=== PATIENT | female | born 1990 | race Caucasian/White ===

== ENCOUNTER 2020-05-28 17:27 | Emergency (ER) | payer SELFPAY ==
--- NOTE | 2020-05-28 17:36 | ER Document Report ---
ED General - General Chief Complaint: Cough Stated Complaint: COUGH Time Seen by Provider: 05/28/20 17:34 Primary Care Provider: NICOLE MULLEN MD [ACTIVE STAFF] - Follow up as needed MONSERRAT JIMENEZ MD [ACTIVE STAFF] - Follow up as needed - HPI Notes: 29-year-old female presents emergency room for evaluation of a cough that she has experienced after having a head cold with a ST for a week that resolved itself. She states that is now moved into her chest. Patient does smoke cigarettes, denies any fevers or chills. 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 Denies any sciatica, numbness or tingling down her arms or legs. Denies any previous back injury. She states it feels worse in the morning when she first gets up. she has not tried any ibuprofen or Tylenol, she states she did try ice and heat without full relief. Patient also states that she noticed on her right lower leg a possible spider bite yesterday, she is concerned about it getting infected. Reports her last menstrual cycle was a week and a half ago. Reports her lower back pain is 3 out of 5, throbbing achy. Patient denies any positive COVID interactions or having COVID herself. patient does not want to be tested for COVID at this time. Denies fevers, chills, chest pain,palpitations, shortness of breath, dyspnea, nausea, vomiting, diarrhea, abdominal pain, hematuria,blurred vision, double vision, loss of vision, speech changes, LH, dizziness, syncope, headaches, wheezing, ST, neck pain, weakness, bowel or bladder dysfunction, saddle anesthesia, numbness or tingling in bilateral upper or lower extremities equally, muscle paralysis, weakness in bilateral upper or lower extremities equally. MEDICATIONS: I agree with the patient medications as charted by the RN. ALLERGIES: I agree with the allergies as charted by the RN. PAST MEDICAL HISTORY/PAST SURGICAL HISTORY: Reviewed and agree as charted by RN. SOCIAL HISTORY: Reviewed and agree as charted by RN. FAMILY HISTORY: No significant familial comorbid conditions directly related to patient complaint EXAM: Reviewed vital signs as charted by RN. REVIEW OF SYSTEMS:reviewed vital signs by RN CONSTITUTIONAL : Denies fever, chills, or sweats. Denies recent illness. EENT: Denies eye, ear, throat, or mouth pain or symptoms. Denies nasal or sinus congestion or discharge. Denies throat, tongue, or mouth swelling or difficulty swallowing. CARDIOVASCULAR: Denies chest pain. Denies palpitations or racing or irregular heart beat. Denies ankle edema. RESPIRATORY: reports cough, cold, or chest congestion. Denies shortness of breath, difficulty breathing, or wheezing. GASTROINTESTINAL: Denies abdominal pain or distention. Denies nausea, vomiting, or diarrhea. Denies blood in vomitus, stools, or per rectum. Denies black, tarry stools. Denies constipation. GENITOURINARY: Denies difficulty urinating, painful urination, burning, frequency, blood in urine, or discharge. FEMALE GENITOURINARY: Denies vaginal bleeding, heavy or abnormal periods, irregular periods. Denies vaginal discharge or odor. MUSCULOSKELETAL: reports back pain. Denies neck pain or stiffness. Denies joint pain or swelling. SKIN: Denies rash, lesions or sores. HEMATOLOGIC : Denies easy bruising or bleeding. LYMPHATIC: Denies swollen, enlarged glands. NEUROLOGICAL: Denies confusion or altered mental status. Denies passing out or loss of consciousness. Denies dizziness or lightheadedness. Denies headache. Denies weakness or paralysis or loss of use of either side. Denies problems with gait or speech. Denies sensory loss, numbness, or tingling. Denies seizures. PSYCHIATRIC: Denies anxiety or stress. Denies depression, suicidal ideation, or homicidal ideation. ALL OTHER SYSTEMS REVIEWED AND NEGATIVE. PHYSICAL EXAMINATION: GENERAL: Well-appearing, well-nourished and in no acute distress. HEAD: Atraumatic, normocephalic. EYES: Pupils equal round and reactive to light, extraocular movements intact, conjunctiva are normal. ENT: Nares patent, oropharynx clear without exudates. Moist mucous membranes. NECK: Normal range of motion, supple without lymphadenopathy LUNGS: Breath sounds clear to auscultation bilaterally and equal. No wheezes rales or rhonchi. HEART: Regular rate and rhythm without murmurs ABDOMEN: Soft, nontender, nondistended abdomen. No guarding, no rebound. No masses appreciated. Female : deferred Musculoskeletal: Normal range of motion, no pitting or edema. No cyanosis. Pain with flexion and extension at 30 degrees, positive straight leg test on left. Normal hip rotation. DTR +2 in BLE equally. Strength 5 out of 5 both distally and proximally to bilateral lower extremities normal motor and sensory function in BLE equally. Distal pulses + 2 BLE equally. Noted paraspinal tenderness near L2 and L3 on left. Strength 5 out of 5 in bilateral lower extremities equally. no spinal tenderness. No CVA tenderness bilaterally. Femoral pulses + 2 bilaterally and equally. No abrasions, scars, lacerations, ecchymosis of any recent trauma. normal gait. NEUROLOGICAL: Cranial nerves grossly intact. Normal speech, normal gait. Normal sensory, motor exams PSYCH: Normal mood, normal affect. SKIN: Warm, Dry, normal turgor, no rashes or lesions noted. Right lower lateral aspect of leg with approximately 2 cm x 2 cm area of erythema induration warmth to touch, no surrounding erythema. Distal pulses +2 bilaterally equally Dictation was performed using [email or web address] voice recognition software - Related Data Allergies/Adverse Reactions: No Known Allergies Allergy (Unverified 05/28/20 17:48) Past Medical History - General Information source: Patient - Social History Smoking Status: Current Every Day Smoker Family History: Reviewed & Not Pertinent Physical Exam - Vital signs Vitals: Temp Pulse Resp BP Pulse Ox 98.3 F 94 18 146/91 H 99 05/28/20 17:35 05/28/20 17:35 05/28/20 17:35 05/28/20 17:35 05/28/20 17:35 Course - Re-evaluation Re-evalutation: 05/28/20 19:48 AFebrile vital stable no distress. Nurses notes reviewed. Patient given 60 mg of Toradol IM. X-ray of lumbar spine and chest x-ray unremarkable. Discussed with patient that we will give her muscle relaxer and anti-inflammatory to take home, advised apply heat 20 minutes on 20 minutes off to her lower back and to her skin infection. With patient's right lower leg cellulitis, Patient is unsure she has a history of MRSA, will treat her with doxycycline twice a day for 10 days. Patient was not interested in having a COVID test when I spoke to her. She states she is not had any covert exposure. She states she typicall has URI like symptoms seasonally when the weather changes. Patient states she does not want any testing for COVID is to follow-up with senior label specialist and primary care provider if symptoms become worse for her back pain. After performing a Medical Screening Examination, I estimate there is LOW risk for EXPANDING OR RUPTURED ABDOMINAL AORTIC ANEURYSM, CAUDA EQUINA SYNDROME, EPIDURAL MASS ABSCESS OR LESION(S), OSTEOMYELITIS,PERSONAL HISTORY OF CANCER, IMMUNOSUPPERSSSION, HISTORY OF IV DRUG USE, FRACTURE, CORD COMPERSSION, CANCER, RETROPERITONEAL BLEED, SPINAL EPIDURAL HEMATOMA, or HERNIATED DISK CAUSING SEVERE SPINAL STENOSIS, thus I consider the discharge disposition reasonable. I have reevaluated this patient multiple times and no significant life threatening changes are noted. The patient and I have discussed the diagnosis and risks, and we agree with discharging home and close follow-up. We also discussed returning to the Emergency Department immediately if new or worsening symptoms occur with the understanding that symptoms and presentations can change. We have discussed the symptoms which are most concerning (e.g., saddle anesthesia, urinary or bowel incontinence or retention, changing or worsening pain) that necessitate immediate return. - Vital Signs Vital signs: Temp Pulse Resp BP Pulse Ox 98.4 F 69 18 123/72 98 05/28/20 21:53 05/28/20 21:34 05/28/20 21:34 05/28/20 21:34 05/28/20 21:34 Discharge - Discharge Clinical Impression: Cellulitis, Cough, Lower back pain Condition: Stable Disposition: HOME, SELF-CARE Instructions: Cellulitis ([facility]), Low Back Pain ([facility]), Upper Respiratory Illness ([facility]) Additional Instructions: X-ray of your chest and of your back was normal. You likely have a viral cold that started in your head and is now down to your chest. Please take warm showers, [id number] cough suppressants. If your symptoms become worse please do follow-up with your primary care provider remember regarding pandemic so please wear your mask, wash your hands and social distance when around other individuals. Please take antibiotic as directed with food for your skin infection. Do not drive, drink or operate heavy machinery while taking medication as can cause sedation impairment of cognitive function with muscle relaxers. Apply heat 20 minutes on 20 minutes off several times a day. Follow-up with primary care or senior label specialist if you are still having back pain after taking treatments. LOW BACK PAIN: Three out of every four people will have an episode of disabling back pain during their lifetime. Most commonly the pain is due to straining of the muscles and ligaments in the low back. Usual treatment includes: (1) Rest on a firm surface. Avoid lying on your stomach. (2) Ice pack the painful area. After a few days, gentle heat may be used intermittently to relax the area, or ice packs can be continued. (3) Medication may be needed -- muscle relaxers and antiinflammatory medicines are commonly used. (4) As the back improves, exercises are prescribed to strengthen the back and abdominal muscles. Your doctor will advise you on the proper care for your back at each stage in your recovery. You may be better in a few days -- or healing may take several weeks. If new symptoms of a "herniated disc" (radiation of pain, numbness, or tingling down the back of the leg or weakness in the leg) occur, you should be re-examined. Further testing may be necessary. Muscle relaxing medications are usually prescribed for acute muscle spasm or injury to the neck and back. They are often combined with antiinflammatory pain medication for increased relief. You may stop the muscle relaxer when the pain and stiffness have improved. Start the medication again if spasms recur. Muscle relaxers may cause drowsiness, especially with the first dose. Do not operate machinery or drive while under the effects of the medication. Most muscle relaxers last up to 24 hours. Do not combine the medication with alcohol. ICE PACKS: Apply ice packs frequently against the painful area. Many different schedules are recommended, such as "20 minutes on, 20 minutes off" or "one hour ice, two hours rest." If you need to work, you may need to go longer between ice treatments. You should plan to have the area ice packed AT LEAST one fourth of the time. The ice should be applied over the wrap, tape, or splint, or over a layer of cloth -- not directly against the skin. Some ice bags have a built-in cloth and can be put directly on the skin. WARM PACKS: After approximately two days, apply gentle heat (such as a heating pad or hot water bottle) for about 20 to 30 minutes about every two hours -- at least four times daily. Warmth and elevation will help you make a more rapid recovery, and will ease the pain considerably. Do not use HOT heat, and never apply heat for longer than 30 minutes. The continuous heat can invisibly damage skin and muscles -- even when no burn is seen on the surface. Damaged muscles can make you MORE sore. FOLLOW-UP CARE: If you have been referred to a physician for follow-up care, call the physicians office for an appointment as you were instructed or within the next two days. If you experience worsening or a significant change in your symptoms, notify the physician immediately or return to the Emergency Department at any time for re-evaluation. Prescriptions: Doxycycline Monohydrate 100 mg PO BID #20 tablet Naproxen 500 mg PO BID #10 tablet Methocarbamol [Robaxin 500 mg Tablet] 500 mg PO QID PRN #15 tablet PRN Reason: Forms: Return to Work Referrals: NICOLE MULLEN MD [ACTIVE STAFF] - Follow up as needed MONSERRAT JIMENEZ MD [ACTIVE STAFF] - Follow up as needed
[2020-05-28] MEDS ORDERED: KETOROLAC TROMETHAMINE 60 MG/2 ML SDV IM ONE (19:40)
--- NOTE | 2020-05-28 20:40 | RADIOLOGY REPORT (SQ) ---
INDICATION: lower back pain, heavy lifting. TECHNIQUE: 5 view(s) of the lumbar spine. Both obliques COMPARISON: None FINDINGS: No evidence of acute displaced fracture. Alignment is anatomic. The facets and intervertebral joints are within normal limits for age. Vertebral body heights are well-maintained. Postsurgical change from cholecystectomy. IMPRESSION: No evidence of acute displaced fracture of the lumbar spine.
--- NOTE | 2020-05-28 20:41 | RADIOLOGY REPORT (SQ) ---
CLINICAL INDICATION: cough. TECHNIQUE: A single portable AP view was obtained of the chest at 2015 hours. COMPARISON: None. FINDINGS: The cardiomediastinal silhouette is normal. The lungs are grossly clear. No evidence of effusion or pneumothorax. The visualized bones are unremarkable. Minimal atelectasis left lung base, unknown chronicity IMPRESSION: No evidence of active intrathoracic disease.
[2020-05-28 21:35] VITALS: BP 123/72
== END 2020-05-28 21:53 | disposition home or self-care (01) ==
LOC: ER 17:27
DX: R05 Cough (principal); M54.5 Low back pain; L03.90 Cellulitis, unspecified; L53.9 Erythematous condition, unspecified; F17.210 Nicotine dependence, cigarettes, uncomplicated
CPT/HCPCS: 99284; 96372; 71045; 72110; J1885